=== PATIENT | male | born 1955 | race Caucasian/White ===

== ENCOUNTER 2020-12-16 19:30 | Outpatient (CLI) | payer BC | END 2020-12-16 19:31 | disposition home or self-care (01) | LOC: SLEEPLAB 19:30 | PROVIDERS: ATTEND Internal Medicine | DX: G47.33 Obstructive sleep apnea (adult) (pediatric) (principal); R06.83 Snoring; E11.9 Type 2 diabetes mellitus without complications; G47.00 Insomnia, unspecified; G47.10 Hypersomnia, unspecified; E66.9 Obesity, unspecified; Z68.41 Body mass index [BMI] 40.0-44.9, adult | CPT/HCPCS: 95811 ==

== ENCOUNTER 2021-09-28 08:00 | Outpatient (CLI) | payer MEDICARE, BC | END 2021-09-28 08:01 | disposition home or self-care (01) | LOC: BICMAMMO 08:00 | PROVIDERS: ATTEND Internal Medicine Rheumatology | DX: M81.0 Age-related osteoporosis without current pathological fracture (principal); M06.00 Rheumatoid arthritis without rheumatoid factor, unspecified site | CPT/HCPCS: 71046; 77080 ==

== ENCOUNTER 2022-10-08 08:39 | Outpatient (CLI) | payer MEDICARE, BC | END 2022-10-08 08:40 | disposition home or self-care (01) | LOC: NM 08:39 | PROVIDERS: ATTEND Internal Medicine | DX: M25.551 Pain in right hip (principal) | CPT/HCPCS: 78306; A9503 ==

== ENCOUNTER 2024-03-03 08:46 | Outpatient (CLI) | payer MEDICARE, BC | END 2024-03-03 08:47 | disposition home or self-care (01) | LOC: BICMAMMO 08:46 | PROVIDERS: ATTEND Internal Medicine Rheumatology | DX: M81.0 Age-related osteoporosis without current pathological fracture (principal) | CPT/HCPCS: 77080 ==